=== PATIENT | male | born 1970 | race Caucasian/White ===

== ENCOUNTER 2024-01-06 19:25 | Emergency (ER) | payer MEDICAID ==
[~2024-01-06] VITALS: Ht 182.9 cm; Wt 89.8 kg
[2024-01-06] MEDS ORDERED: KETOROLAC TROMETHAMINE 30 MG INJ ONE (20:05)
[2024-01-06] MEDS: KETOROLAC TROMETHAMINE 30 MG INJ IM ONE (20:15)
[2024-01-06] MEDS ORDERED: NAPR-1009 PO (20:34)
[2024-01-06 20:49] VITALS: BP 128/63; TEMP 98.6; O2SAT 100
== END 2024-01-06 20:50 | disposition home or self-care (01) ==
LOC: ER 19:28
DX: S16.1XXA Strain of muscle, fascia and tendon at neck level, initial encounter (principal); Z60.2 Problems related to living alone; V89.2XXA Person injured in unspecified motor-vehicle accident, traffic, initial encounter; Y93.89 Activity, other specified; Y92.89 Other specified places as the place of occurrence of the external cause; Y99.8 Other external cause status
CPT/HCPCS: 99285; 70450; 73564; 72125; 72128; 72131; 96372; J1885; A4606; A4663